=== PATIENT | male | born 2000 | race Caucasian/White ===

== ENCOUNTER 2023-03-26 20:39 | Inpatient (IN) | payer BC ==
[~2023-03-26] VITALS: Ht 172.7 cm; Wt 81.6 kg
[2023-03-26 20:53] VITALS: BP_SYST 139; PULSE 88; RESP 17; TEMP 97.7; O2SAT 99
[2023-03-26] MEDS ORDERED: PIPERACILLIN/TAZO 3.375 GM in NS 50 ML IV ONE (23:00)
[2023-03-26] MEDS ORDERED: PIPERACILLIN/TAZOBACTAM 3.375 GM/VIAL (ZOSYN) IV ONE ×2 (23:12→23:20)
[2023-03-26] MEDS ORDERED: NACL 0.9% 1,000 ML IV ONE (23:15)
[2023-03-26 23:44] LABS: BASOPHILS # (AUTO) 0.1 K/uL (0.0-0.2); BASOPHILS % (AUTO) 0.6 % (0.0-2.0); EOSINOPHILS # (AUTO) 0.2 K/uL (0.0-0.4); EOSINOPHILS % (AUTO) 1.4 % (0.0-4.0); HEMATOCRIT 40.6 % (36-54); HEMOGLOBIN 13.3 g/dL (14.0-18.0); LYMPHOCYTES % (AUTO) 15.3 % (20.5-51.5); MEAN CORPUSCULAR HEMOGLOBIN 30 pg (27-31); MEAN CORPUSCULAR HGB CONC 33 % (32-36); MEAN CORPUSCULAR VOLUME 92 fL (79.0-98.0); MONOCYTES # (AUTO) 1.5 K/uL (0.0-1.0); MONOCYTES % (AUTO) 11.3 % (1.7-9.3); NEUTROPHILS # (AUTO) 9.3 K/uL (1.8-7.7); NEUTROPHILS % (AUTO) 71.4 % (40.0-70.0); PLATELET COUNT (AUTO) 266 K/uL (130-430); RED BLOOD CELL COUNT(AUTO) 4.42 MIL/uL (4.2-6.2); RED CELL DISTRIBUTION WIDTH 12.6 % (9.0-15.0); WHITE BLOOD COUNT (AUTO) 13.1 K/uL (4.8-10.8)
[2023-03-26 23:55] LABS: CREATININE 1.07 mg/dL (0.55-1.30)
[2023-03-27] VITALS (8 sets, daily range): BP systolic 116–141; PULSE 75–89; RESP 17–18; TEMP 97.2–99.2; O2SAT 97–98
[2023-03-27 00:08] LABS: TOTAL BILIRUBIN 0.5 mg/dL (0.0-1.0); TOTAL PROTEIN, SERUM 7.7 g/dL (6.4-8.3)
[2023-03-27] MEDS ORDERED: D5/0.45 NS 1,000 ML IV ONE (03:00)
[2023-03-27] MEDS ORDERED: MORPHINE 2 MG/ML INJ. SYRINGE IVP PRN ×2 (06:00)
[2023-03-27] MEDS ORDERED: LR 1,000 ML IV.SOLN IV ONE (11:17)
[2023-03-27] MEDS ORDERED: fentaNYL CITRATE/PF 100 MCG/2 ML AMP ONE (11:17)
[2023-03-27] MEDS ORDERED: ONDANSETRON HCL 4 MG/2 ML VIAL ONE (11:17)
[2023-03-27] MEDS ORDERED: MIDAZOLAM HCL 2 MG/2 ML VIAL (VERSED) ONE (11:17)
[2023-03-27] MEDS ORDERED: PROPOFOL 200MG/ 20ML VIAL (DIPRIVAN) IV ONE (11:17)
[2023-03-27] MEDS ORDERED: LIDOCAINE/EPI 1% 1:100000 20 ML VIAL ONE (11:17)
[2023-03-27] MEDS ORDERED: BUPIVACAINE LIPOSOME/PF 266 MG/20 ML VIAL INFIL ONE (11:35)
[2023-03-27] MEDS ORDERED: DOCUSATE SODIUM 100 MG CAPSULE PO PRN (12:00)
[2023-03-27] MEDS ORDERED: traMADol HCL HCL 50 MG TABLET (ULTRAM) PO PRN (12:00)
[2023-03-27] MEDS: cefOXitin SODIUM 1 GM in D5W 50 ML IV SCH ×2 (12:00→20:40)
[2023-03-27] MEDS ORDERED: KETOROLAC TROMETHAMINE 30 MG VIAL IVP PRN (12:00)
[2023-03-27] MEDS ORDERED: METOCLOPRAMIDE HCL 10 MG/2 ML VIAL IVP PRN (12:00)
[2023-03-27] MEDS ORDERED: ONDANSETRON HCL 4 MG/2 ML VIAL IVP PRN (12:00)
[2023-03-28 00:01] VITALS: BP_SYST 129; PULSE 72; RESP 14; TEMP 97.8; O2SAT 95
[2023-03-28] MEDS: cefOXitin SODIUM 1 GM in D5W 50 ML IV SCH ×2 (03:50→07:16)
[2023-03-28 05:49] LABS: ERYTHROCYTE SEDIMENTATION RATE 35 MM/HR (0-15)
[2023-03-28 05:55] LABS: BASOPHILS # (AUTO) 0.1 K/uL (0.0-0.2); EOSINOPHILS # (AUTO) 0.3 K/uL (0.0-0.4); EOSINOPHILS % (AUTO) 4.4 % (0.0-4.0); HEMATOCRIT 40.2 % (36-54); HEMOGLOBIN 13.4 g/dL (14.0-18.0); LYMPHOCYTES # (AUTO) 1.5 K/uL (1.0-5.5); LYMPHOCYTES % (AUTO) 21.7 % (20.5-51.5); MEAN CORPUSCULAR HEMOGLOBIN 31 pg (27-31); MEAN CORPUSCULAR HGB CONC 33 % (32-36); MEAN CORPUSCULAR VOLUME 92 fL (79.0-98.0); MONOCYTES % (AUTO) 14.3 % (1.7-9.3); NEUTROPHILS # (AUTO) 4.1 K/uL (1.8-7.7); NEUTROPHILS % (AUTO) 58.6 % (40.0-70.0); PLATELET COUNT (AUTO) 254 K/uL (130-430); RED BLOOD CELL COUNT(AUTO) 4.38 MIL/uL (4.2-6.2); RED CELL DISTRIBUTION WIDTH 12.4 % (9.0-15.0); WHITE BLOOD COUNT (AUTO) 7.1 K/uL (4.8-10.8)
[2023-03-28 06:36] LABS: ALBUMIN 3.4 g/dL (3.4-4.8); CALCIUM 9.3 mg/dL (8.4-11.0); CREATININE 1.03 mg/dL (0.55-1.30); POTASSIUM 4.1 mmol/L (3.5-5.1); TOTAL BILIRUBIN 0.6 mg/dL (0.0-1.0); TOTAL PROTEIN, SERUM 7.1 g/dL (6.4-8.3)
[2023-03-28 08:00] VITALS: BP_SYST 118; PULSE 66; RESP 18; TEMP 98.7; O2SAT 97
[2023-03-28 09:37] VITALS: O2SAT 97
[2023-03-28] MEDS ORDERED: AUG875 PO (13:35)
[2023-03-28] MEDS ORDERED: TRAM50TA2 PO (13:35)
[2023-03-28] MEDS ORDERED: DOCU-144 PO (13:35)
[2023-03-28 14:02] VITALS: BP_SYST 128; PULSE 75; RESP 17; TEMP 97.6; O2SAT 98
== END 2023-03-28 15:00 | disposition home or self-care (01) | DRG 346 ==
LOC: SED 20:39 → SMU 03-27 02:56
PROVIDERS: ADMIT Preventive Medicine Preventive Medicine/Occupational Environmental Medicine; ATTEND Preventive Medicine Preventive Medicine/Occupational Environmental Medicine
PROC: 0D9P0ZZ Drainage of Rectum, Open Approach (ICD-10-PCS; principal; 2023-03-27 11:15)
DX: K61.1 Rectal abscess (principal); D72.829 Elevated white blood cell count, unspecified
CPT/HCPCS: 36415; 72192-TC; 76376; 80053; 83605; 85025; 85651-TC; 87040; 87070-TC; 87075-TC; 96365; 99285; C9290; J0694; J2405; J2543; J2704; J3010; J3465; J7030; J7060; J7120